=== PATIENT | female | born 1945 | race Caucasian/White ===

== ENCOUNTER 2016-07-23 07:25 | Day surgery (SDC) | payer MEDICARE ==
[~2016-07-23] VITALS: Ht 170.2 cm; Wt 96.0 kg
[~2016-07-23 07:25] MED LIST: ASPI-973 PO; BENA20TA PO; FLUT9.9S NS; LEVO125T6 PO; LOVA40TA PO; OMEG500C PO; PRAZ1CAP2 PO; Sodium Chloride LOK Flush 10 mL Syringe IV PRN; fentaNYL-PF 50 mCg/mL 2 mL Inj IVPUSH PRN
[2016-07-23 07:58] VITALS: BP 145/95; PULSE 105; RESP 14; O2SAT 96
[2016-07-23] MEDS: 0.9% Sodium Chloride 1,000 ML IV SCH ×2 (08:30→08:57)
--- NOTE | 2016-07-23 08:31 | PCM.ENDCOL ---
Colonoscopy Date of Service: July 23, 2016 Physician Xiang Mtz MD Pre Procedure Diagnosis: screening Post Procedure Dx & Findings: polyp hemmorhoids Procedure Colonoscopy PROCEDURE IN DETAIL: Prep adequate Withdrawal time 9 minutes After unremarkable rectal examination the Olympus video colonoscope was inserted patient's anal canal and was advanced to cecum. Landmarks were identified including the ileocecal valve and appendiceal orifice. Scope was withdrawn systematically. Visualized colonic mucosa showed healthy shiny mucosa with normal healthy-appearing vasculature. In the ascending colon, there was a 4 mm polyp which was removed completely using cold snare. In the rectum retroflexion was done which showed hemorrhoids. Anal canal was inspected carefully on the way out and hemorrhoids noted. Impression Polyp 1 status post complete removal Hemorrhoids Recommendation Repeat colonoscopy 5 years Presedation Assessment Risks and Benefits Informed consent was obtained from the patient after all risks and benefits including but not limited to drug reaction, infection, pain, bleeding, perforation, as well as alternatives were discussed. Patient monitoring Continuous pulse oximetry, cardiac monitoring, blood pressure monitoring, IV access, and oxygen at 2L per nasal cannula. Periprocedural Fentanyl: Fentanyl 125mcg Incrementally Midazolam: Midazolam 5mg Incrementally Complications There were no periprocedural complications identified. Post Procedure Plan Post Procedure Recommendations 1. Restrict activities today. 2. Resume normal activities in the morning. 3. Resume medications. 4. Patient informed of normal post procedure side effects as bloating, drowsiness, blood streaking in the stool. 5. average risk CRCS. If colon polyps come back as: -Hyperplastic- can repeat colonoscopy in 10 years -Tubular adenoma- repeat colonoscopy in 5 years -Tubulovillous/villous adenoma- repeat colonoscopy in 3 years -If any dysplasia- return to clinic as soon as possible 6. Please don't hesitate to call me with any questions. Xiang Mtz MD July 23, 2016 08:31
--- NOTE | 2016-07-23 09:02 | PCM.ENDCOL ---
Colonoscopy Date of Service: July 23, 2016 Physician Xiang Mtz MD Pre Procedure Diagnosis: Screening Post Procedure Dx & Findings: Polyp hemorrhoids diverticula Procedure Colonoscopy PROCEDURE IN DETAIL: Prep fair Withdrawal time 16 minutes After unremarkable rectal examination the Olympus video colonoscope was inserted patient's anal canal and was advanced to cecum. Landmarks were identified including the ileocecal valve and appendiceal orifice. Scope was withdrawn systematically. Visualized colonic mucosa showed healthy shiny mucosa with normal healthy-appearing vasculature. In the cecum, there were 2 polyps. One was about 2-3 mm in size which was removed completely using cold snare. The other one was less than 1 mm in size which was removed completely using cold forceps. There was a 3 mm polyp in the ascending colon which was removed completely using cold snare. In the transverse colon there were 2 polyps. These were about 2 mm in size which were removed completely using cold snare. In the sigmoid colon there are several small diverticuli. In the rectum retroflexion was done which showed hemorrhoids. Anal canal was inspected carefully on the way out and hemorrhoids noted. Impression Polyp 5 status post status post complete removal Fair prep Diverticuli Hemorrhoids Recommendation Repeat colonoscopy in 2 - 3 years. With 2 days of clears and 2 weeks of low fiber diet. Diverticular diet Presedation Assessment Risks and Benefits Informed consent was obtained from the patient after all risks and benefits including but not limited to drug reaction, infection, pain, bleeding, perforation, as well as alternatives were discussed. Patient monitoring Continuous pulse oximetry, cardiac monitoring, blood pressure monitoring, IV access, and oxygen at 2L per nasal cannula. Periprocedural Fentanyl: Fentanyl 75mcg Incrementally Midazolam: Midazolam 4mg Incrementally Complications There were no periprocedural complications identified. Post Procedure Plan Post Procedure Recommendations 1. Restrict activities today. 2. Resume normal activities in the morning. 3. Resume medications. 4. Patient informed of normal post procedure side effects as bloating, drowsiness, blood streaking in the stool. 5. average risk CRCS. If colon polyps come back as: -Hyperplastic- can repeat colonoscopy in 10 years -Tubular adenoma- repeat colonoscopy in 5 years -Tubulovillous/villous adenoma- repeat colonoscopy in 3 years -If any dysplasia- return to clinic as soon as possible 6. Please don't hesitate to call me with any questions. Xiang Mtz MD July 23, 2016 09:02
[2016-07-23 09:05] VITALS: BP 150/80; PULSE 98; RESP 16; O2SAT 95
[2016-07-23 09:15] VITALS: BP 126/75; PULSE 93; RESP 16; O2SAT 95
--- NOTE | 2016-07-24 10:17 | PATH ---
SURGICAL PATHOLOGY Attending Physician:Xiang Mtz M.D. CASE STATUS: Signed Out PATIENT NAME: MEAGAN BURNETT PID: [id number] : 1945 DATE COLLECTED:07/23/2016 17:31 SPECIMEN: 1: Colon, Biopsy 2: Colon, Biopsy 3: Colon, Biopsy CLINICAL HISTORY: SCREENING,COLON POLYPS 1). CECAL POLYPS X2 2). ASCENDING COLON POLYP 3). TRANSVERSE POLYPS X2 FINAL DIAGNOSIS: 1.CECAL POLYPS: TUBULAR ADENOMA INVOLVING BOTH BIOPSY FRAGMENTS. 2.ASCENDING COLON POLYP: TUBULAR ADENOMA INVOLVING BOTH BIOPSY FRAGMENTS. 3.TRANSVERSE COLON POLYPS: TUBULAR ADENOMA INVOLVING MULTIPLE BIOPSY FRAGMENTS. ICD10 CODE D12.0 GROSS DESCRIPTION: The specimen is received in three formalin filled containers labeled with the patient's name. 1). The specimen is sublabeled "cecal polyps" and consists of 2 portions of tissue which aggregate to 0.3 x 0.3 x 0.2 CM. The specimen is entirely submitted in cassette 1A. 2). The specimen is sublabeled "ascending colon polyp" and consists of 2 portions of tissue which aggregate to 0.3 x 0.3 x 0.2 CM. The specimen is entirely submitted in cassette 2A. 3). The specimen is sublabeled "transverse colon polyp" and consists of multiple portions of tissue which aggregate to 0.5 x 0.5 x 0.3 CM. The specimen is entirely submitted in cassette 3A. 07/23/2016 [facility] MICRO DESCRIPTION: See diagnosis. ICD-9 CODES: CPT CODES: 1: 22124 2: 95282 3: 66683 Electronically Signed Out Woo William MD [facility] Pathology [facility] [address], [place] [address] Technical component performed at [facility], [facility] [address], [place], [address]
== END 2016-07-23 23:59 | disposition home or self-care (01) ==
LOC: END 07:25
PROVIDERS: ATTEND Internal Medicine
DX: Z12.11 Encounter for screening for malignant neoplasm of colon (principal); D12.0 Benign neoplasm of cecum; D12.2 Benign neoplasm of ascending colon; D12.3 Benign neoplasm of transverse colon; K57.30 Diverticulosis of large intestine without perforation or abscess without bleeding; I10 Essential (primary) hypertension; K64.9 Unspecified hemorrhoids
CPT/HCPCS: 45380; 45385; 99153; G0500; J7030